=== PATIENT | female | born 2000 | race Caucasian/White ===

== ENCOUNTER 2024-03-27 17:28 | Outpatient (OUT) | payer OTHER, SELFPAY | END 2024-03-27 17:50 | disposition home or self-care (01) | LOC: FBCO 17:29 | PROVIDERS: Visit Provider Obstetrics & Gynecology | DX: Z39.1 Encounter for care and examination of lactating mother (principal) | CPT/HCPCS: G0463 ==

== ENCOUNTER 2024-04-03 08:51 | Outpatient (OUT) | payer OTHER, SELFPAY ==
--- NOTE | 2024-04-03 10:47 | PC.NURSE ---
Donna and 7 week old Sajan arrive for support. Donna continues to pump exclusively at this time instead of direct . States is at Peace with pumping. Will choose differently next , but is set on pumping this time. Discussed flange fit, has been using 24mm and 28mm flanges. Not comfortable and feels like breast is not getting emptied well. Flange sized at 34mm left and 21mm right. States flange insert kit arriving today from [employer] and will use flanges appropriately.Discussed use of herbal supplements and dietary changes for increasing supply as well. States feels confident will be able to continue pumping for baby, goal is at least 6 months Leaves ambulatory aware to call for continued support and [facility] group.
== END 2024-04-03 08:52 | disposition home or self-care (01) ==
LOC: FBCO 08:52
PROVIDERS: Visit Provider Obstetrics & Gynecology
DX: Z39.1 Encounter for care and examination of lactating mother (principal)